=== PATIENT | female | born 1960 | race Caucasian/White ===

== ENCOUNTER 2017-09-12 16:54 | Emergency (ER) | payer BC, OTHER ==
[2017-09-12] MEDS ORDERED: IPRATROPIUM-ALBUTEROL 3 ML NEB INHALATION STA ×2 (17:18→19:02)
[2017-09-12] MEDS ORDERED: SODIUM CHLORIDE 0.9% 1,000 ML IV STA (17:18)
--- NOTE | 2017-09-12 17:43 | ED ---
SOB HPI - General Chief Complaint: Shortness of Breath Stated Complaint: SOB Time Seen by Provider: 09/12/17 17:07 Source: patient, family, RN notes reviewed Mode of arrival: ambulatory Limitations: no limitations - History of Present Illness Initial Comments: 57-year-old female who states she's had intermittent episodes of shortness of breath which started with what she thought was a upper respiratory infection about 4-5 weeks ago she states she's been progressively worse not feeling better finally couldn't take it anymore and came in for evaluation due to sinus congestion and fullness in her mid and left-sided headaches to the sinus region she states. No overt chest pain no phlegm production. Breast sounds and exertional dyspnea. She does have a history pneumonia and bronchitis in the past. She is not a smoker. She has been using home remedies without success MD Complaint: shortness of breath - Related Data Home Medications Medication Instructions Recorded Confirmed ALPRAZolam [Xanax] 0.5 - 1 mg PO HS 09/12/17 09/12/17 Aspirin/Acetaminophen/Caffeine 2 tab PO Q6H PRN 09/12/17 09/12/17 [Excedrin Extra Strength Caplet] Diazepam [Valium] 10 mg PO BID 09/12/17 09/12/17 FLUoxetine HCL [PROzac] 20 mg PO BID 09/12/17 09/12/17 Fluticasone Propionate [Flonase 1 spray EA NOSTRIL DAILY PRN 09/12/17 09/12/17 Allergy Relief] Mirtazapine [Remeron] 15 mg PO HS 09/12/17 09/12/17 Previous Rx's Medication Instructions Recorded Albuterol Inhaler [Ventolin Hfa 2 puff INHALATION Q6HR PRN #1 09/12/17 Inhaler] inhaler predniSONE 20 mg PO BID #10 tab 09/12/17 Allergies Allergy/AdvReac Type Severity Reaction Status Date / Time No Known Allergies Allergy Verified 09/12/17 17:56 Review of Systems ROS Statement: Those systems with pertinent positive or pertinent negative responses have been documented in the HPI. ROS Other: All systems not noted in ROS Statement are negative. Past Medical History Past Medical History: No Reported History History of Any Multi-Drug Resistant Organisms: None Reported Past Surgical History: Hysterectomy Past Psychological History: No Psychological Hx Reported Smoking Status: Never smoker Past Alcohol Use History: None Reported Past Drug Use History: None Reported General Exam - General Exam Comments Initial Comments: This is a well-developed well-nourished awake alert oriented 1 female Limitations: no limitations General appearance: alert, in no apparent distress Head exam: Present: atraumatic, normocephalic, normal inspection Eye exam: Present: normal appearance, PERRL, EOMI. Absent: scleral icterus, conjunctival injection, periorbital swelling ENT exam: Present: normal exam, mucous membranes moist Neck exam: Present: normal inspection. Absent: tenderness, meningismus, lymphadenopathy Respiratory exam: Present: decreased breath sounds. Absent: respiratory distress, wheezes, rales, rhonchi, stridor Cardiovascular Exam: Present: normal rhythm, tachycardia, normal heart sounds. Absent: systolic murmur, diastolic murmur, rubs, gallop, clicks GI/Abdominal exam: Present: soft, normal bowel sounds. Absent: distended, tenderness, guarding, rebound, rigid Extremities exam: Present: normal inspection, full ROM, normal capillary refill. Absent: tenderness, pedal edema, joint swelling, calf tenderness Back exam: Present: normal inspection Neurological exam: Present: alert, oriented X3, CN II-XII intact Psychiatric exam: Present: normal affect, normal mood Skin exam: Present: warm, dry, intact, normal color. Absent: rash Course Vital Signs 09/12/17 09/12/17 09/12/17 16:59 17:35 18:05 Temperature 97.1 F L Pulse Rate 112 H 78 Respiratory 22 18 Rate Blood Pressure 132/68 O2 Sat by Pulse 98 Oximetry 09/12/17 09/12/17 09/12/17 18:18 18:30 19:12 Temperature Pulse Rate 80 109 H 83 Respiratory 18 18 Rate Blood Pressure 112/57 109/58 O2 Sat by Pulse 94 L 96 Oximetry 09/12/17 09/12/17 09/12/17 19:22 19:36 20:22 Temperature 98 F Pulse Rate 74 72 97 Respiratory 18 Rate Blood Pressure 100/58 O2 Sat by Pulse 96 Oximetry - Reevaluation(s) Reevaluation #1: 09/12/17 19:03 I did reevaluate the patient she states she did get some relief for about 15 minutes after the updraft treatment. She is still short of breath reevaluation reveals diminished breath sounds symmetric her first evaluation. 09/12/17 19:03 She will be given a steroid injection as well as IV magnesium and a repeat DuoNeb. Medical Decision Making - Medical Decision Making On reevaluation the patient she is breathing better with good air movement now. The current presentation consistent with a bronchospasm. She'll be discharged on appropriate medication with referral to pulmonary medicine. She has request Dr. Nogueira - Lab Data Result diagrams: 09/12/17 17:31 09/12/17 17:31 Lab Results 09/12/17 09/12/17 09/12/17 Range/Units 17:31 17:31 17:31 WBC 7.0 (3.8-10.6) k/uL RBC 4.24 (3.80-5.40) m/uL Hgb 13.4 (11.4-16.0) gm/dL Hct 40.2 (34.0-46.0) % MCV 94.8 (80.0-100.0) fL MCH 31.5 (25.0-35.0) pg MCHC 33.2 (31.0-37.0) g/dL RDW 14.4 (11.5-15.5) % Plt Count 245 (150-450) k/uL Neutrophils % 52 % Lymphocytes % 36 % Monocytes % 5 % Eosinophils % 4 % Basophils % 1 % Neutrophils # 3.7 (1.3-7.7) k/uL Lymphocytes # 2.5 (1.0-4.8) k/uL Monocytes # 0.4 (0-1.0) k/uL Eosinophils # 0.2 (0-0.7) k/uL Basophils # 0.1 (0-0.2) k/uL PT (9.0-12.0) sec INR (<1.2) APTT (22.0-30.0) sec D-Dimer (<0.60) mg/L FEU Sodium 143 (137-145) mmol/L Potassium 4.1 (3.5-5.1) mmol/L Chloride 109 H (98-107) mmol/L Carbon Dioxide 22 (22-30) mmol/L Anion Gap 12 mmol/L BUN 10 (7-17) mg/dL Creatinine 0.80 (0.52-1.04) mg/dL Est GFR (MDRD) Af Amer >60 (>60 ml/min/1.73 sqM) Est GFR (MDRD) Non-Af >60 (>60 ml/min/1.73 sqM) Glucose 131 H (74-99) mg/dL Calcium 9.9 (8.4-10.2) mg/dL Magnesium 1.8 (1.6-2.3) mg/dL Total Bilirubin 0.3 (0.2-1.3) mg/dL AST 60 H (14-36) U/L ALT 107 H (9-52) U/L Alkaline Phosphatase 115 (38-126) U/L Total Creatine Kinase 46 (30-135) U/L CK-MB (CK-2) 0.3 (0.0-2.4) ng/mL CK-MB (CK-2) Rel Index 0.7 Troponin I <0.012 (0.000-0.034) ng/mL NT-Pro-B Natriuret Pep pg/mL Total Protein 7.1 (6.3-8.2) g/dL Albumin 4.1 (3.5-5.0) g/dL 09/12/17 09/12/17 Range/Units 17:31 17:31 WBC (3.8-10.6) k/uL RBC (3.80-5.40) m/uL Hgb (11.4-16.0) gm/dL Hct (34.0-46.0) % MCV (80.0-100.0) fL MCH (25.0-35.0) pg MCHC (31.0-37.0) g/dL RDW (11.5-15.5) % Plt Count (150-450) k/uL Neutrophils % % Lymphocytes % % Monocytes % % Eosinophils % % Basophils % % Neutrophils # (1.3-7.7) k/uL Lymphocytes # (1.0-4.8) k/uL Monocytes # (0-1.0) k/uL Eosinophils # (0-0.7) k/uL Basophils # (0-0.2) k/uL PT 9.5 (9.0-12.0) sec INR 1.0 (<1.2) APTT 22.6 (22.0-30.0) sec D-Dimer 0.55 (<0.60) mg/L FEU Sodium (137-145) mmol/L Potassium (3.5-5.1) mmol/L Chloride (98-107) mmol/L Carbon Dioxide (22-30) mmol/L Anion Gap mmol/L BUN (7-17) mg/dL Creatinine (0.52-1.04) mg/dL Est GFR (MDRD) Af Amer (>60 ml/min/1.73 sqM) Est GFR (MDRD) Non-Af (>60 ml/min/1.73 sqM) Glucose (74-99) mg/dL Calcium (8.4-10.2) mg/dL Magnesium (1.6-2.3) mg/dL Total Bilirubin (0.2-1.3) mg/dL AST (14-36) U/L ALT (9-52) U/L Alkaline Phosphatase (38-126) U/L Total Creatine Kinase (30-135) U/L CK-MB (CK-2) (0.0-2.4) ng/mL CK-MB (CK-2) Rel Index Troponin I (0.000-0.034) ng/mL NT-Pro-B Natriuret Pep 120 pg/mL Total Protein (6.3-8.2) g/dL Albumin (3.5-5.0) g/dL - EKG Data -: EKG Interpreted by Me (UG shows sinus rhythm of 82. Interval 1:30 QRS duration 70 QT since QTC of) Disposition Clinical Impression: Acute bronchospasm Disposition: HOME SELF-CARE Condition: Good Instructions: Bronchospasm (ED) Prescriptions: Albuterol Inhaler [Ventolin Hfa Inhaler] 2 puff INHALATION Q6HR PRN #1 inhaler PRN Reason: Dyspnea predniSONE 20 mg PO BID #10 tab Referrals: Omar Leon DO [Primary Care Provider] - 1-2 days
[2017-09-12 17:49] LABS: Basophils # (A) 0.1 k/uL (0-0.2); Basophils % (A) 1 %; Eosinophils # (A) 0.2 k/uL (0-0.7); Eosinophils % (A) 4 %; HCT 40.2 % (34.0-46.0); HGB 13.4 gm/dL (11.4-16.0); Lymphocytes # (A) 2.5 k/uL (1.0-4.8); Lymphocytes % (A) 36 %; MCH 31.5 pg (25.0-35.0); MCHC 33.2 g/dL (31.0-37.0); MCV 94.8 fL (80.0-100.0); Mean Platelet Volume 8.5; Monocytes # (A) 0.4 k/uL (0-1.0); Monocytes % (A) 5 %; Neutrophils # (A) 3.7 k/uL (1.3-7.7); Neutrophils % (A) 52 %; Platelet Count 245 k/uL (150-450); RBC 4.24 m/uL (3.80-5.40); RDW 14.4 % (11.5-15.5)
--- NOTE | 2017-09-12 17:51 | XR ---
EXAMINATION TYPE: XR chest 2V DATE OF EXAM: 09/12/2017 COMPARISON: Chest x-ray November 25, 2014 HISTORY: Shortness of breath for 4 weeks. TECHNIQUE: Frontal and lateral views of the chest are obtained. FINDINGS: There is chronic parenchymal change without suspicious focal air space opacity, pleural ef fusion, or pneumothorax seen on current study. The cardiac silhouette size is upper limits of normal . The osseous structures are intact. IMPRESSION: No suspicious acute pulmonary process on current study.
[2017-09-12 18:01] VITALS: RESP 18
[2017-09-12 18:05] LABS: ALT 107 U/L (9-52); AST 60 U/L (14-36); Albumin 4.1 g/dL (3.5-5.0); Alkaline Phosphatase 115 U/L (38-126); Anion Gap 12 mmol/L; Blood Urea Nitrogen 10 mg/dL (7-17); Calcium 9.9 mg/dL (8.4-10.2); Carbon Dioxide 22 mmol/L (22-30); Chloride 109 mmol/L (98-107); Glucose 131 mg/dL (74-99); Magnesium 1.8 mg/dL (1.6-2.3); Potassium 4.1 mmol/L (3.5-5.1); Sodium 143 mmol/L (137-145); Total Bilirubin 0.3 mg/dL (0.2-1.3); Total Protein 7.1 g/dL (6.3-8.2)
[2017-09-12 18:06] LABS: Creatine Kinase 46 U/L (30-135)
[2017-09-12 18:07] LABS: D-Dimer 0.55 mg/L FEU (<0.60); Partial Thromboplastin Time 22.6 sec (22.0-30.0); Prothrombin Time 9.5 sec (9.0-12.0)
[2017-09-12 18:20] LABS: Creatine Kinase MB 0.3 ng/mL (0.0-2.4); Troponin I <0.012 ng/mL (0.000-0.034)
[2017-09-12] MEDS ORDERED: MAGNESIUM SULFATE-D5W PMX 1 GM in DEXTROSE/WATER 1 100ML.BAG IVPB ONE (19:02)
[2017-09-12] MEDS ORDERED: methylPREDNISolone SOD SUCCI 125 MG/2 ML VIAL IV STA (19:02)
[2017-09-12 20:22] VITALS: BP 100/58; PULSE 97; TEMP 98
== END 2017-09-12 20:56 | disposition home or self-care (01) ==
LOC: EC 16:54
DX: J98.01 Acute bronchospasm (principal); Z79.899 Other long term (current) drug therapy
CPT/HCPCS: 99285; 96365; 96375; 96361; 36415; 94640 ×2; 93005; 85379; 83880; 80053; 82550; 82553; 83735; 84484; 85025; 85610; 85730; 87040; 71046; J2930; J3475

== ENCOUNTER 2021-07-17 16:14 | Observation (INO) | payer BC ==
[2021-07-17] MEDS ORDERED: PIPERACILLIN-TAZOBACTAM 3.375 GM in SODIUM CHLORIDE 0.9% 100 ML IVPB STA (18:40)
[2021-07-17] MEDS ORDERED: NALOXONE 0.4 MG/ML 1 ML VIAL IV PRN (18:41)
[2021-07-17 18:48] LABS: Basophils # (A) 0.1 k/uL (0-0.2); Basophils % (A) 1 %; Eosinophils # (A) 0.1 k/uL (0-0.7); Eosinophils % (A) 2 %; HCT 41.1 % (34.0-46.0); Lymphocytes # (A) 3.3 k/uL (1.0-4.8); Lymphocytes % (A) 38 %; MCH 33.1 pg (25.0-35.0); MCV 97.3 fL (80.0-100.0); Mean Platelet Volume 8.6; Monocytes # (A) 0.5 k/uL (0-1.0); Monocytes % (A) 6 %; Neutrophils # (A) 4.5 k/uL (1.3-7.7); Neutrophils % (A) 52 %; Platelet Count 223 k/uL (150-450); RBC 4.23 m/uL (3.80-5.40); RDW 12.9 % (11.5-15.5); WBC 8.6 k/uL (3.8-10.6)
--- NOTE | 2021-07-17 18:49 | ED ---
General Adult HPI - General Chief complaint: Abdominal Pain Stated complaint: appendicitis, called and told her to come to ER. Time Seen by Provider: 07/17/21 18:24 Source: patient Mode of arrival: ambulatory Limitations: no limitations - History of Present Illness Initial comments: Dictation was produced using [employer] dictation software. please excuse any grammatical, word or spelling errors. Chief Complaint: 61-year-old female presents with abnormal outpatient CT History of Present Illness: To 1-year-old female she was sent in for abnormal CT. Patient has been having right lower quadrant abdominal pain for the last 2 days. She had a CT ordered by her primary care doctor. Showed acute appendicitis. Patient has any fever. She has right-sided pain. The reading. She has past surgical history of hysterectomy. Patient denies any significant comorbidities. She does have a history of anxiety. The ROS documented in this emergency department record has been reviewed and confirmed by me. Those systems with pertinent positive or negative responses have been documented in the HPI. All other systems are other negative and/or noncontributory. PHYSICAL EXAM: General Impression: Alert and oriented x3, not in acute distress HEENT: Normocephalic atraumatic, extra-ocular movements intact, pupils equal and reactive to light bilaterally, mucous membranes moist. Cardiovascular: Heart regular rate and rhythm Chest: Able to complete full sentences, no retractions, no tachypnea Abdomen: abdomen soft, tenderness in McBurney's with rebound tenderness, non- distended, no organomegaly Musculoskeletal: Pulses present and equal in all extremities, no peripheral edema Motor: no focal deficits noted Neurological: CN II-XII grossly intact, no focal motor or sensory deficits noted Skin: Intact with no visualized rashes Psych: Normal affect and mood ED course: 61-year-old feel presents to the emergency department for acute appendicitis. Signs upon arrival are within acceptable limits. Case was discussed with on-call surgeon, Dr. Aguirre is willing to accept patients care. Plan is to perform macroscopic appendectomy tomorrow. Medicine is consulted for medical management. Patient started on Zosyn. Laboratory evaluation obtained. CBC, coag panel, metabolic panel is unremarkable. Preop EKG and chest x-ray ordered. - Related Data Home Medications Medication Instructions Recorded Confirmed ALPRAZolam [Xanax] 0.5 - 1 mg PO HS 09/12/17 09/12/17 Aspirin/Acetaminophen/Caffeine 2 tab PO Q6H PRN 09/12/17 09/12/17 [Excedrin Extra Strength Caplet] Diazepam [Valium] 10 mg PO BID 09/12/17 09/12/17 FLUoxetine HCL [PROzac] 20 mg PO BID 09/12/17 09/12/17 Fluticasone Propionate [Flonase 1 spray EA NOSTRIL DAILY PRN 09/12/17 09/12/17 Allergy Relief] Mirtazapine [Remeron] 15 mg PO HS 09/12/17 09/12/17 Previous Rx's Medication Instructions Recorded Albuterol Inhaler (Mhu) [Ventolin 2 puff INHALATION Q6HR PRN #1 09/12/17 Hfa Inhaler (Mhu)] inhaler predniSONE [Deltasone] 20 mg PO BID #10 tab 09/12/17 Allergies Allergy/AdvReac Type Severity Reaction Status Date / Time No Known Allergies Allergy Verified 07/17/21 17:15 Review of Systems ROS Statement: Those systems with pertinent positive or pertinent negative responses have been documented in the HPI. ROS Other: All systems not noted in ROS Statement are negative. Past Medical History Past Medical History: No Reported History History of Any Multi-Drug Resistant Organisms: None Reported Past Surgical History: Hysterectomy Past Psychological History: No Psychological Hx Reported Smoking Status: Never smoker Past Alcohol Use History: None Reported Past Drug Use History: None Reported General Exam Limitations: no limitations Course Vital Signs 07/17/21 07/17/21 17:15 18:43 Temperature 98.0 F Pulse Rate 97 92 Respiratory 20 18 Rate Blood Pressure 102/54 131/80 O2 Sat by Pulse 95 95 Oximetry Medical Decision Making - Lab Data Result diagrams: 07/17/21 18:36 07/17/21 18:36 Lab Results 07/17/21 07/17/21 07/17/21 Range/Units 18:36 18:36 18:36 WBC 8.6 (3.8-10.6) k/uL RBC 4.23 (3.80-5.40) m/uL Hgb 14.0 (11.4-16.0) gm/dL Hct 41.1 (34.0-46.0) % MCV 97.3 (80.0-100.0) fL MCH 33.1 (25.0-35.0) pg MCHC 34.0 (31.0-37.0) g/dL RDW 12.9 (11.5-15.5) % Plt Count 223 (150-450) k/uL MPV 8.6 Neutrophils % 52 % Lymphocytes % 38 % Monocytes % 6 % Eosinophils % 2 % Basophils % 1 % Neutrophils # 4.5 (1.3-7.7) k/uL Lymphocytes # 3.3 (1.0-4.8) k/uL Monocytes # 0.5 (0-1.0) k/uL Eosinophils # 0.1 (0-0.7) k/uL Basophils # 0.1 (0-0.2) k/uL PT 9.8 (9.0-12.0) sec INR 0.9 (<1.2) APTT 23.3 (22.0-30.0) sec Sodium 136 L (137-145) mmol/L Potassium 3.9 (3.5-5.1) mmol/L Chloride 102 (98-107) mmol/L Carbon Dioxide 23 (22-30) mmol/L Anion Gap 11 mmol/L BUN 8 (7-17) mg/dL Creatinine 0.79 (0.52-1.04) mg/dL Est GFR (CKD-EPI)AfAm >90 (>60 ml/min/1.73 sqM) Est GFR (CKD-EPI)NonAf 81 (>60 ml/min/1.73 sqM) Glucose 109 H (74-99) mg/dL Plasma Lactic Acid Trevor (0.7-2.0) mmol/L Calcium 9.4 (8.4-10.2) mg/dL 07/17/21 Range/Units 18:36 WBC (3.8-10.6) k/uL RBC (3.80-5.40) m/uL Hgb (11.4-16.0) gm/dL Hct (34.0-46.0) % MCV (80.0-100.0) fL MCH (25.0-35.0) pg MCHC (31.0-37.0) g/dL RDW (11.5-15.5) % Plt Count (150-450) k/uL MPV Neutrophils % % Lymphocytes % % Monocytes % % Eosinophils % % Basophils % % Neutrophils # (1.3-7.7) k/uL Lymphocytes # (1.0-4.8) k/uL Monocytes # (0-1.0) k/uL Eosinophils # (0-0.7) k/uL Basophils # (0-0.2) k/uL PT (9.0-12.0) sec INR (<1.2) APTT (22.0-30.0) sec Sodium (137-145) mmol/L Potassium (3.5-5.1) mmol/L Chloride (98-107) mmol/L Carbon Dioxide (22-30) mmol/L Anion Gap mmol/L BUN (7-17) mg/dL Creatinine (0.52-1.04) mg/dL Est GFR (CKD-EPI)AfAm (>60 ml/min/1.73 sqM) Est GFR (CKD-EPI)NonAf (>60 ml/min/1.73 sqM) Glucose (74-99) mg/dL Plasma Lactic Acid Trevor 1.9 (0.7-2.0) mmol/L Calcium (8.4-10.2) mg/dL Disposition Clinical Impression: Acute appendicitis Disposition: ADMITTED IP TO THIS HOSP Condition: Fair Referrals: Garo Mantilla DO [Primary Care Provider] - 1-2 days
[2021-07-17 18:55] LABS: African American GFR (CKD) >90 (>60 ml/min/1.73 sqM); Anion Gap 11 mmol/L; Blood Urea Nitrogen 8 mg/dL (7-17); Calcium 9.4 mg/dL (8.4-10.2); Carbon Dioxide 23 mmol/L (22-30); Chloride 102 mmol/L (98-107); Glucose 109 mg/dL (74-99); Non-African American GFR(CKD) 81 (>60 ml/min/1.73 sqM); Potassium 3.9 mmol/L (3.5-5.1); Sodium 136 mmol/L (137-145)
[2021-07-17 19:06] LABS: INR 0.9 (<1.2); Partial Thromboplastin Time 23.3 sec (22.0-30.0); Prothrombin Time 9.8 sec (9.0-12.0)
[2021-07-17] MEDS: SODIUM CHLORIDE 0.9% 1,000 ML IV SCH (19:49)
--- NOTE | 2021-07-17 19:55 | XR ---
EXAMINATION: XR chest 1V portable DATE AND TIME: 07/17/2021 6:53 PM CLINICAL INDICATION: PHH; pre operative TECHNIQUE: Departmental protocol COMPARISON: 09/22/2017 FINDINGS: The lungs are clear. The pleural spaces are negative. The cardiac silhouette is not enlarged. The remainder of the mediastinal silhouette is unremarkable. The skeletal structures and soft tissues are negative for acute findings. IMPRESSION: NO ACUTE PROCESS.
[2021-07-18] MEDS: ALPRAZolam 0.5 MG TAB PO PRN ×2 (02:11→20:25)
[2021-07-18] MEDS: AMITRIPTYLINE HCL 25 MG TAB PO SCH ×2 (04:38→20:18)
[2021-07-18] MEDS ORDERED: ACETAMINOPHEN IV (For NPO) 1,000 MG in EMPTY BAG 1 BAG IVPB PRN (08:53)
[2021-07-18] MEDS: PIPERACILLIN-TAZOBACTAM 3.375 GM in SODIUM CHLORIDE 0.9% 100 ML IVPB SCH ×2 (09:27→16:19)
[2021-07-18] MEDS: SODIUM CHLORIDE 0.9% 1,000 ML IV SCH (09:27)
--- NOTE | 2021-07-18 09:29 | P.GSHP ---
<Willa Vincent - Last Filed: 07/18/21 09:20> History of Present Illness H&P Date: 07/18/21 CHIEF COMPLAINT: Abdominal pain HISTORY OF PRESENT ILLNESS: This is a 61-year-old female who presented to the hospital with complaints of right lower quadrant abdominal pain 5 days and outpatient computed tomography scan with evidence of acute appendicitis. Patient complains of nausea. She denies any vomiting, fever chills or sweats. She admits to having some loose bowel movements. She initially thought that her symptoms were related to her IBS. However, she continued to have pain and no improvement. She then went to her PCP who ordered a CAT scan. Past surgical history includes hysterectomy, and tubal ligation. She is afebrile. PAST MEDICAL HISTORY: See list. PAST SURGICAL HISTORY: See list. MEDICATIONS: See list. ALLERGIES: See list. SOCIAL HISTORY: No illicit drug use. REVIEW OF SYSTEMS: CONSTITUTIONAL: Denies fever or chills. HEENT: Denies blurred vision, vision changes, or eye pain. Denies hemoptysis CARDIOVASCULAR: Denies chest pain or pressure. RESPIRATORY: No shortness of breath. GASTROINTESTINAL: See HPI for pertinent findings HEMATOLOGIC: Denies bleeding disorders. GENITOURINARY: Denies any blood in urine or increased urinary frequency. SKIN: Denies pruitis. Denies rash. PHYSICAL EXAM: VITAL SIGNS: Reviewed GENERAL: Well-developed in no acute distress. HEENT: No sclera icterus. Extraocular movements grossly intact. Moist buccal mucosa. Head is atraumatic, normocephalic. No nasal drainage. ABDOMEN: Soft. Nondistended. Tenderness with palpation to right lower quadrant. NEUROLOGIC: Alert and oriented. Cranial nerves II through XII grossly intact. LABORATORY DATA: WBC 8.6 Hgb 14 PLT 223 INR 0.9 sodium 136 BUN 8 creatinine 0.79 K3.9 IMAGING: Computed tomography scan abdomen and pelvis demonstrating mild or early uncomplicated acute appendicitis Chest x-ray no acute process ASSESSMENT: 1. Acute appendicitis PLAN: -Patient scheduled for laparoscopic, possible open appendectomy today with Dr. 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 Signing provider agrees with the documented findings, assessment, and plan of care. Past Medical History Past Medical History: No Reported History Additional Past Medical History / Comment(s): pt states GERD History of Any Multi-Drug Resistant Organisms: None Reported Past Surgical History: Hysterectomy Past Psychological History: Anxiety Smoking Status: Never smoker Past Alcohol Use History: None Reported Past Drug Use History: None Reported Medications and Allergies Home Medications Medication Instructions Recorded Confirmed Type ALPRAZolam [Xanax] 1 - 1.5 mg PO HS PRN 09/12/17 07/17/21 History Aspirin/Acetaminophen/Caffeine 2 tab PO Q6H PRN 09/12/17 07/17/21 History [Excedrin Extra Strength Caplet] Diazepam [Valium] 10 mg PO DAILY PRN 09/12/17 07/17/21 History FLUoxetine HCL [PROzac] 40 mg PO BID 09/12/17 07/17/21 History Amitriptyline HCl [Elavil] 50 mg PO HS 07/17/21 07/17/21 History Multivitamins, Thera [Multivitamin 1 tab PO DAILY 07/17/21 07/17/21 History (formulary)] Quercetin Supplement 1 tab PO DAILY 07/17/21 07/17/21 History Allergies Allergy/AdvReac Type Severity Reaction Status Date / Time No Known Allergies Allergy Verified 07/18/21 10:53 Surgical - Exam Vital Signs Temp Pulse Resp BP Pulse Ox 98.0 F 97 20 102/54 95 07/17/21 17:15 07/17/21 17:15 07/17/21 17:15 07/17/21 17:15 07/17/21 17:15 Results - Labs 07/17/21 18:36 07/17/21 18:36 Abnormal Lab Results - Last 24 Hours (Table) 07/17/21 Range/Units 18:36 Sodium 136 L (137-145) mmol/L Glucose 109 H (74-99) mg/dL Diabetes panel 07/17/21 Range/Units 18:36 Sodium 136 L (137-145) mmol/L Potassium 3.9 (3.5-5.1) mmol/L Chloride 102 (98-107) mmol/L Carbon Dioxide 23 (22-30) mmol/L BUN 8 (7-17) mg/dL Creatinine 0.79 (0.52-1.04) mg/dL Glucose 109 H (74-99) mg/dL Calcium 9.4 (8.4-10.2) mg/dL Calcium panel 07/17/21 Range/Units 18:36 Calcium 9.4 (8.4-10.2) mg/dL Pituitary panel 07/17/21 Range/Units 18:36 Sodium 136 L (137-145) mmol/L Potassium 3.9 (3.5-5.1) mmol/L Chloride 102 (98-107) mmol/L Carbon Dioxide 23 (22-30) mmol/L BUN 8 (7-17) mg/dL Creatinine 0.79 (0.52-1.04) mg/dL Glucose 109 H (74-99) mg/dL Calcium 9.4 (8.4-10.2) mg/dL Adrenal panel 07/17/21 Range/Units 18:36 Sodium 136 L (137-145) mmol/L Potassium 3.9 (3.5-5.1) mmol/L Chloride 102 (98-107) mmol/L Carbon Dioxide 23 (22-30) mmol/L BUN 8 (7-17) mg/dL Creatinine 0.79 (0.52-1.04) mg/dL Glucose 109 H (74-99) mg/dL Calcium 9.4 (8.4-10.2) mg/dL <Laci Aguirre - Last Filed: 07/18/21 12:13> History of Present Illness As above. Patient's history is somewhat atypical for appendicitis however location of pain and physical exam findings are consistent. CAT scan reviewed. CAT scan shows what appears represent mild appendicitis. Options reviewed. We'll proceed with laparoscopic, possible open appendectomy today. Risks of bleeding, infection, scarring, hernia, abscess, conversion to open procedure, bladder bowel and ureteral injury, and anesthesia-related Occasions reviewed. Patient understands and wishes to proceed. Continue IV antibiotics. Possible discharge later today if doing well. Surgical - Exam Vital Signs Temp Pulse Resp BP Pulse Ox 98.0 F 97 20 102/54 95 07/17/21 17:15 07/17/21 17:15 07/17/21 17:15 07/17/21 17:15 07/17/21 17:15 Results - Labs 07/17/21 18:36 07/17/21 18:36 Abnormal Lab Results - Last 24 Hours (Table) 07/17/21 Range/Units 18:36 Sodium 136 L (137-145) mmol/L Glucose 109 H (74-99) mg/dL Diabetes panel 07/17/21 Range/Units 18:36 Sodium 136 L (137-145) mmol/L Potassium 3.9 (3.5-5.1) mmol/L Chloride 102 (98-107) mmol/L Carbon Dioxide 23 (22-30) mmol/L BUN 8 (7-17) mg/dL Creatinine 0.79 (0.52-1.04) mg/dL Glucose 109 H (74-99) mg/dL Calcium 9.4 (8.4-10.2) mg/dL Calcium panel 07/17/21 Range/Units 18:36 Calcium 9.4 (8.4-10.2) mg/dL Pituitary panel 07/17/21 Range/Units 18:36 Sodium 136 L (137-145) mmol/L Potassium 3.9 (3.5-5.1) mmol/L Chloride 102 (98-107) mmol/L Carbon Dioxide 23 (22-30) mmol/L BUN 8 (7-17) mg/dL Creatinine 0.79 (0.52-1.04) mg/dL Glucose 109 H (74-99) mg/dL Calcium 9.4 (8.4-10.2) mg/dL Adrenal panel 07/17/21 Range/Units 18:36 Sodium 136 L (137-145) mmol/L Potassium 3.9 (3.5-5.1) mmol/L Chloride 102 (98-107) mmol/L Carbon Dioxide 23 (22-30) mmol/L BUN 8 (7-17) mg/dL Creatinine 0.79 (0.52-1.04) mg/dL Glucose 109 H (74-99) mg/dL Calcium 9.4 (8.4-10.2) mg/dL
[2021-07-18] MEDS ORDERED: IV FLUID CONTINUATION 1,000 ML IV ONE ×2 (10:39→10:40)
[2021-07-18] MEDS ORDERED: HEPARIN SODIUM,PORCINE/PF 5,000 UNIT/0.5 ML SYRINGE SQ ONE (10:51)
[2021-07-18] MEDS ORDERED: ONDANSETRON 4 MG/2 ML VIAL ONE (10:51)
[2021-07-18] MEDS ORDERED: DEXAMETHASONE SOD PHOSPHATE 4 MG/ML 1 ML VIAL IVP ONE (11:01)
[2021-07-18] MEDS ORDERED: SCOPOLAMINE 1.5MG/72HR PATCH TRANSDERM ONE (11:02)
[2021-07-18] MEDS ORDERED: SUCCINYLCHOLINE CHLORIDE 100 MG/5 ML SYR IV ONE (12:33)
[2021-07-18] MEDS ORDERED: MIDAZOLAM 2 MG/2 ML VIAL ONE (12:33)
[2021-07-18] MEDS ORDERED: fentaNYL (PF) 50 MCG/ML 2 ML AMP ONE (12:33)
[2021-07-18] MEDS ORDERED: GLYCOPYRROLATE 0.2 MG/ML 2 ML VIAL ONE (12:33)
[2021-07-18] MEDS ORDERED: ROCURONIUM 10 MG/ML (5 ML VIAL) IV ONE (12:33)
[2021-07-18] MEDS ORDERED: NEOSTIGMINE 1 MG/ML 10 ML VIAL ONE (12:33)
[2021-07-18] MEDS ORDERED: LIDOCAINE 1% INJ 10MG/ML (20 ML MDV) ONE (12:33)
[2021-07-18] MEDS ORDERED: PROPOFOL 10 MG/ML 20 ML VIAL IV ONE (12:33)
[2021-07-18] MEDS ORDERED: BUPIVACAIN-EPI 0.25%-1:200,000 30 ML VIAL SQ ONE ×2 (12:55)
[2021-07-18] MEDS ORDERED: LACTATED RINGERS 1,000 ML IV ONE (13:03)
[2021-07-18] MEDS ORDERED: HYDROcodone/APAP 5-325MG 1 EACH TAB PO PRN (13:29)
[2021-07-18] MEDS ORDERED: ACETAMINOPHEN TAB 325 MG TAB PO PRN (13:29)
[2021-07-18] MEDS ORDERED: ONDANSETRON 4 MG/2 ML VIAL IVP PRN (13:29)
[2021-07-18] MEDS ORDERED: HYDROmorphone 0.5 MG/0.5 ML SYRINGE IVP PRN (13:29)
--- NOTE | 2021-07-18 13:31 | P.OP ---
Date of Procedure: 07/18/21 Procedure(s) Performed: PREOPERATIVE DIAGNOSIS: Acute appendicitis POSTOPERATIVE DIAGNOSIS: Same PROCEDURE: Laparoscopic appendectomy SURGEON: Carla EBL: 20 mL ANESTHESIA: General COMPLICATIONS: None OPERATIVE PROCEDURE: The patient was brought and placed on the operating table in the supine position. The patient was placed under general anesthesia. The abdomen was prepped and draped in the usual sterile fashion. A small vertical infraumbilical incision was made. The fascia was retracted anteriorly with Key forceps. The Veress needle was advanced into the peritoneal cavity. The saline drop test was normal. Insufflation took place to 15 mmHg. A 5 mm trocar was then placed. An additional 5 mm suprapubic trocar was placed under direct visualization as well as a 12 mm left lower quadrant trocar under direct visualization. The appendix was inspected. It was acutely inflamed. The mesoappendix was dissected. The base of the appendix was divided using a linear 45 mm intestinal stapler. The mesentery itself was divided using LigaSure. There is a small area of bleeding controlled using the clip clinical resource director. The area was then irrigated. No further purulence or bleeding was seen. The appendix was brought out of the peritoneal cavity through the left lower quadrant trocar site with an Endo Catch bag. The fascia at the 12 mm site was closed using a Preet-Nazia 0 Vicryl stitch. The skin at all 3 sites was closed using 4-0 Monocryl sutures. Skin glue was then applied. DISPOSITION: Stable to recovery room
[2021-07-18] MEDS ORDERED: HYDROmorphone 0.5 MG/0.5 ML SYRINGE IVP ONE (13:58)
[2021-07-18] MEDS: HEPARIN SODIUM,PORCINE/PF 5,000 UNIT/0.5 ML SYRINGE SQ SCH (16:19)
[2021-07-19] MEDS: SODIUM CHLORIDE 0.9% 1,000 ML IV SCH ×2 (00:59→12:49)
[2021-07-19] MEDS: PIPERACILLIN-TAZOBACTAM 3.375 GM in SODIUM CHLORIDE 0.9% 100 ML IVPB SCH ×2 (01:00→08:05)
[2021-07-19] MEDS: HEPARIN SODIUM,PORCINE/PF 5,000 UNIT/0.5 ML SYRINGE SQ SCH ×2 (01:00→08:05)
[2021-07-19 08:47] VITALS: BP 101/65; PULSE 87; RESP 18; TEMP 98.3
[2021-07-19] MEDS ORDERED: PANTOPRAZOLE 40 MG/10 ML VIAL IV SCH (09:00)
--- NOTE | 2021-07-19 11:24 | P.DS ---
Providers Date of admission: 07/17/21 18:41 Expected date of discharge: 07/19/21 Attending physician: Laci Aguirre Consults: 07/17/21 18:42 Consult Physician Routine Consulting Provider: Dennis Luna Consult Reason/Comments: medicine consult Do you want consulting provider notified?: Yes Primary care physician: [facility] Course: Patient admitted 2 nights ago with acute appendicitis. Underwent laparoscopic appendectomy yesterday morning. Doing well today. Tolerating diet. No fevers. Incisions are clean and dry, we'll discharge. No antibiotic needed. No pain medicines for discharge only [id number] meds. Follow-up one week. Patient Condition at Discharge: Fair Plan - Discharge Summary Discharge Rx Participant: Yes New Discharge Prescriptions: New HYDROcodone/APAP 5-325MG [[place] 5-325] 1 tab PO Q6HR PRN 3 Days #6 tab PRN Reason: Analgesia No Action FLUoxetine HCL [PROzac] 40 mg PO BID ALPRAZolam [Xanax] 1 - 1.5 mg PO HS PRN PRN Reason: ANXIETY/SLEEP Diazepam [Valium] 10 mg PO DAILY PRN PRN Reason: Anxiety Aspirin/Acetaminophen/Caffeine [Excedrin Extra Strength Caplet] 2 tab PO Q6H PRN PRN Reason: Pain Amitriptyline HCl [Elavil] 50 mg PO HS Quercetin Supplement 1 tab PO DAILY Multivitamins, Thera [Multivitamin (formulary)] 1 tab PO DAILY Discharge Medication List ALPRAZolam [Xanax] 1 - 1.5 mg PO HS PRN 09/12/17 [History] Aspirin/Acetaminophen/Caffeine [Excedrin Extra Strength Caplet] 2 tab PO Q6H PRN 09/12/17 [History] Diazepam [Valium] 10 mg PO DAILY PRN 09/12/17 [History] FLUoxetine HCL [PROzac] 40 mg PO BID 09/12/17 [History] Amitriptyline HCl [Elavil] 50 mg PO HS 07/17/21 [History] Multivitamins, Thera [Multivitamin (formulary)] 1 tab PO DAILY 07/17/21 [History] Quercetin Supplement 1 tab PO DAILY 07/17/21 [History] HYDROcodone/APAP 5-325MG [[place] 5-325] 1 tab PO Q6HR PRN 3 Days #6 tab 07/18/21 [Rx] Follow up Appointment(s)/Referral(s): Laci Aguirre MD [Medical Doctor] - 1 Week Garo Mantilla DO [Primary Care Provider] - 1-2 days Patient Instructions/Handouts: *Surgery [facility] - Scopalamine Patch Instructions
--- NOTE | 2021-07-20 18:00 | P.CONS ---
History of Present Illness - Reason for Consult Consult date: 07/18/21 Medical management - Chief Complaint Acute appendicitis - History of Present Illness 61-year-old female patient presented to ED with abnormal CT of abdomen; patient has been having right lower quadrant abdominal pain for the past 2-3 days and was evaluated by primary care physician and CT of the abdomen was done which revealed acute appendicitis; patient was advised to proceed to ED; patient re ports low-grade temperature and has been having chills along with severe, intractable right-sided lower quadrant abdominal pain In the ED patient was started on IV Zosyn Workup in ED including lab work, CBC, CMP and chest x-ray was unremarkable Review of Systems REVIEW OF SYSTEMS: CONSTITUTIONAL: No fever, no malaise, no fatigue. HEENT: No recent visual problems or hearing problems. Denied any sore throat. CARDIOVASCULAR: No chest pain, orthopnea, PND, no palpitations, no syncope. PULMONARY: No shortness of breath, no cough, no hemoptysis. GASTROINTESTINAL: No diarrhea, no nausea, no vomiting, no abdominal pain. NEUROLOGICAL: No headaches, no weakness, no numbness. HEMATOLOGICAL: Denies any bleeding or petechiae. GENITOURINARY: Denies any burning micturition, frequency, or urgency. MUSCULOSKELETAL/RHEUMATOLOGICAL: Denies any joint pain, swelling, or any muscle pain. ENDOCRINE: Denies any polyuria or polydipsia. The rest of the 14-point review of systems is negative. Past Medical History Past Medical History: No Reported History Additional Past Medical History / Comment(s): pt states GERD History of Any Multi-Drug Resistant Organisms: None Reported Past Surgical History: Hysterectomy Past Psychological History: Anxiety Smoking Status: Never smoker Past Alcohol Use History: None Reported Past Drug Use History: None Reported Medications and Allergies Home Medications Medication Instructions Recorded Confirmed Type ALPRAZolam [Xanax] 1 - 1.5 mg PO HS PRN 09/12/17 07/17/21 History Aspirin/Acetaminophen/Caffeine 2 tab PO Q6H PRN 09/12/17 07/17/21 History [Excedrin Extra Strength Caplet] Diazepam [Valium] 10 mg PO DAILY PRN 09/12/17 07/17/21 History FLUoxetine HCL [PROzac] 40 mg PO BID 09/12/17 07/17/21 History Amitriptyline HCl [Elavil] 50 mg PO HS 07/17/21 07/17/21 History Multivitamins, Thera [Multivitamin 1 tab PO DAILY 07/17/21 07/17/21 History (formulary)] Quercetin Supplement 1 tab PO DAILY 07/17/21 07/17/21 History HYDROcodone/APAP 5-325MG [[place] 1 tab PO Q6HR PRN 3 Days #6 tab 07/18/21 Rx 5-325] Allergies Allergy/AdvReac Type Severity Reaction Status Date / Time No Known Allergies Allergy Verified 07/18/21 10:53 Physical Exam Vitals: Vital Signs Temp Pulse Pulse Resp BP BP Pulse Ox 07/18/21 10:41 97.1 F L 89 18 115/61 93 L 07/18/21 08:00 88 17 07/18/21 07:00 97.9 F 88 17 92/42 97 07/18/21 02:01 98.0 F 89 16 105/67 92 L 07/18/21 02:00 97 16 07/17/21 22:22 97.7 F 97 16 131/73 95 07/17/21 19:55 88 16 115/60 95 07/17/21 18:43 92 18 131/80 95 07/17/21 17:15 98.0 F 97 20 102/54 95 Intake and Output 07/17/21 07/18/21 07/18/21 22:59 06:59 14:59 Other: Voiding Method Toilet Toilet # Voids 2 2 Weight 90.718 kg - Constitutional General appearance: Present: average body habitus, cooperative, no acute distress - EENT Eyes: Present: anicteric sclerae, EOMI, PERRLA, normal appearance ENT: Present: hearing grossly normal, normal oropharynx Ears: bilateral: normal - Neck Neck: Present: normal ROM. Absent: lymphadenopathy, rigidity, thyromegaly Carotids: negative: bruit present Thyroid: bilateral: normal size, negative: enlarged, nodule - Respiratory Respiratory: bilateral: CTA, negative: rales, rhonchi, wheezing - Cardiovascular Rhythm: regular Heart sounds: normal: S1, S2 Abnormal Heart Sounds: Absent: systolic murmur, diastolic murmur - Gastrointestinal General gastrointestinal: Present: normal bowel sounds, soft. Absent: distended, organomegaly, tenderness - Genitourinary Genitourinary Comment(s): deferred - Integumentary Integumentary: Present: normal turgor. Absent: jaundiced, rash, ulcer - Neurologic Neurologic: Present: CNII-XII intact. Absent: focal deficits - Musculoskeletal Musculoskeletal: Present: gait normal, strength equal bilaterally - Psychiatric Psychiatric: Present: A&O x's 3, appropriate affect, intact judgment & insight Results CBC & Chem 7: 07/17/21 18:36 07/17/21 18:36 Labs: Abnormal Lab Results - Last 24 Hours (Table) 07/17/21 Range/Units 18:36 Sodium 136 L (137-145) mmol/L Glucose 109 H (74-99) mg/dL Assessment and Plan Assessment: 1. Acute onset right lower quadrant abdominal pain - CT of the abdomen completed reveals acute appendicitis; patient is currently on IV antibiotics along with IV morphine for pain control - Surgery on board and patient is scheduled for laparoscopic appendectomy this afternoon 2. Anxiety; we will resume home dose of Xanax 1 mg by mouth daily at bedtime when necessary 3. Depression; Prozac 40 mg by mouth twice a day 4. Gastroesophageal reflux disease; PPI DVT prophylaxis; SCDs CODE STATUS; full code
--- NOTE | 2021-07-20 18:03 | P.PN ---
Subjective Progress Note Date: 07/19/21 Principal diagnosis: Acute appendicitis; status post laparoscopic appendectomy 61-year-old female patient presented to ED with abnormal CT of abdomen; patient has been having right lower quadrant abdominal pain for the past 2-3 days and was evaluated by primary care physician and CT of the abdomen was done which revealed acute appendicitis; patient was advised to proceed to ED; patient reports low-grade temperature and has been having chills along with severe, intractable right-sided lower quadrant abdominal pain In the ED patient was started on IV Zosyn Workup in ED including lab work, CBC, CMP and chest x-ray was unremarkable 07/19/2021 Patient is seen and evaluated in room at bedside; does report discomfort at surgical site; no fever or chills; labs are reviewed and stable; patient is stable from medical standpoint Objective - Vital Signs Vital signs: Vital Signs Temp 98.3 F 07/19/21 07:00 Pulse 87 07/19/21 07:00 Resp 18 07/19/21 07:00 BP 101/65 07/19/21 07:00 Pulse Ox 91 L 07/19/21 07:00 Intake & Output 07/18/21 07/19/21 07/19/21 18:59 06:59 18:59 Intake Total 800 Output Total 20 Balance 780 Intake: IV 800 Output: Estimated Blood Loss 20 Other: Voiding Method Toilet Toilet # Voids 3 2 - Exam - Constitutional General appearance: Present: average body habitus, cooperative, no acute distress - EENT Eyes: Present: anicteric sclerae, EOMI, PERRLA, normal appearance ENT: Present: hearing grossly normal, normal oropharynx Ears: bilateral: normal - Neck Neck: Present: normal ROM. Absent: lymphadenopathy, rigidity, thyromegaly Carotids: negative: bruit present Thyroid: bilateral: normal size, negative: enlarged, nodule - Respiratory Respiratory: bilateral: CTA, negative: rales, rhonchi, wheezing - Cardiovascular Rhythm: regular Heart sounds: normal: S1, S2 Abnormal Heart Sounds: Absent: systolic murmur, diastolic murmur - Gastrointestinal General gastrointestinal: Present: normal bowel sounds, soft. Absent: distended, organomegaly, tenderness - Genitourinary Genitourinary Comment(s): deferred - Integumentary Integumentary: Present: normal turgor. Absent: jaundiced, rash, ulcer - Neurologic Neurologic: Present: CNII-XII intact. Absent: focal deficits - Musculoskeletal Musculoskeletal: Present: gait normal, strength equal bilaterally - Psychiatric Psychiatric: Present: A&O x's 3, appropriate affect, intact judgment & insight - Labs CBC & Chem 7: 07/17/21 18:36 11 18:36 Assessment and Plan Assessment: 1. Acute onset right lower quadrant abdominal pain - CT of the abdomen completed reveals acute appendicitis; patient is currently on IV antibiotics along with IV morphine for pain control - Surgery on board and patient is scheduled for laparoscopic appendectomy this afternoon 2. Anxiety; we will resume home dose of Xanax 1 mg by mouth daily at bedtime when necessary 3. Depression; Prozac 40 mg by mouth twice a day 4. Gastroesophageal reflux disease; PPI DVT prophylaxis; SCDs CODE STATUS; full code
== END 2021-07-19 13:02 | disposition home or self-care (01) ==
LOC: EC 16:14 → 6NMEDSUR 18:41
PROVIDERS: ADMIT Surgery; ATTEND Surgery
DX: K35.80 Unspecified acute appendicitis (principal); K36 Other appendicitis; F32.9 Major depressive disorder, single episode, unspecified; K21.9 Gastro-esophageal reflux disease without esophagitis; F41.9 Anxiety disorder, unspecified; K58.9 Irritable bowel syndrome, unspecified; J32.9 Chronic sinusitis, unspecified; Z20.822 Contact with and (suspected) exposure to COVID-19; Z79.899 Other long term (current) drug therapy; Z90.710 Acquired absence of both cervix and uterus
CPT/HCPCS: 44970; 99285; 36415; 88304; 80048; 83605; 85025; 85610; 85730; 87635; 71045; G0378 ×3; J2543 ×3; J2250; J1100; J2710; J2405; J2001; J3010; J0330; J2704; C9113; J1170; J1644 ×2

== ENCOUNTER → 2021-07-17 | Outpatient (CLI) | payer BC ==
--- NOTE | 2021-07-17 15:54 | CT ---
EXAMINATION TYPE: CT abdomen pelvis w con DATE OF EXAM: 07/17/2021 HISTORY: RLQ pain x3 days CT DLP: 1730mGycm Automated Exposure Control for Dose Reduction was Utilized. CONTRAST: CT scan of the abdomen and pelvis is performed with IV Contrast, patient injected with 100 mL of Isov ue 300. COMPARISON: None. FINDINGS: LUNG BASES: Dependent atelectasis bilateral lung bases. LIVER/GB: Liver is markedly hypodense consistent with diffuse fatty infiltration. Innumerable gallsto justyna within the gallbladder without surrounding inflammatory change. PANCREAS: No significant abnormality is seen. SPLEEN: No significant abnormality is seen. ADRENALS: No significant abnormality is seen. KIDNEYS: No significant abnormality is seen. BOWEL: Oral contrast reaches level of the proximal transverse colon. No suspicious small or large bow el dilatation. Mild wall thickening in the distal transverse colon and left colon along with proximal to mid sigmoid colon in the pelvis in a contiguous fashion. Finding may reflect a mild uncomplicated acute colitis versus product of poor distention. Few diverticula in the sigmoid colon are redemonstr ated. No significant surrounding fat stranding. Terminal ileum appears within normal limits seen near axial images 64 through 67. Appendix is mildly dilated up to 8 mm with mild adjacent fat stranding. No adjacent free air. No well-formed fluid colle ction or abscess. UTERUS/ADNEXA: Uterus surgically absent. Occasional tiny phleboliths. LYMPH NODES: No greater than 1cm abdominal or pelvic lymph nodes are appreciated. OSSEOUS STRUCTURES: Moderate axial joint space loss in both hips. Multilevel facet arthropathy in the lower lumbar spine. OTHER: Mild to moderate calcified plaque of the aorta extends into branch vessels. IMPRESSION: CT findings suggest a mild or early uncomplicated acute appendicitis as detailed above. Attempts to contact the office are unsuccessful and perfect serve not available for ordering physicia n. A Bent level critical message alert has been initiated for Garo Mantilla DO via the [employer] Critical Results System on 07/17/2021 3:50 PM. This message alert has been sent to Garo grayson DO via the preferences provided by the clinician for the receipt of Radiology Critical Findings . Message ID [id number].
== END | disposition home or self-care (01) ==
LOC: RADCTMAIN 13:30
PROVIDERS: ATTEND Family Medicine
DX: K38.8 Other specified diseases of appendix (principal)
CPT/HCPCS: 74177; Q9967

== ENCOUNTER → 2022-12-04 | Outpatient (CLI) | payer BC ==
--- NOTE | 2022-12-04 10:27 | US ---
EXAMINATION TYPE: US abdomen complete DATE OF EXAM: 12/04/2022 COMPARISON: 09/23 CT ABD CLINICAL HISTORY: R10.30 LOWER ABD PAIN. generalized abd pain TECHNIQUE: Multiple sonographic images of the abdomen are obtained. FINDINGS: EXAM MEASUREMENTS: Liver Length: 17.1 cm Gallbladder Wall: 0.2 cm CBD: 0.4 cm Spleen: 9.0 cm Right Kidney: 10.7 x 4.2 x 3.8 cm Left Kidney: 10.1 x 4.5 x 4.7 cm THERAPEUTIC RECREATION DIRECTOR NOTES: some exam limitations due to overlying bowel gas Pancreas: tail gassed out, visualized portions demonstrate echogenic echopattern Liver: upper limits in size, attenuating, heterogenous, sparing seen at january Gallbladder: multiple layering stones Evidence for sonographic Randolph's sign: no CBD: wnl Spleen: wnl Right Kidney: wnl Left Kidney: wnl Upper IVC: wnl Abd Aorta: gassed out distally, visualized portions wnl The intrahepatic portion of the IVC and proximal abdominal aorta are within normal limits. Common bi le duct is unremarkable. The visualized portions of the pancreas are homogenous. The spleen is unre markable. Kidneys are symmetric and free of hydronephrosis. No renal lesions are seen. IMPRESSION: 1. Cholelithiasis. 2. Borderline hepatomegaly with underlying hepatic steatosis.
== END | disposition home or self-care (01) ==
LOC: RADUSWWP 09:48
PROVIDERS: ATTEND Family Medicine
DX: K21.00 Gastro-esophageal reflux disease with esophagitis, without bleeding (principal); K76.0 Fatty (change of) liver, not elsewhere classified; K58.0 Irritable bowel syndrome with diarrhea; K80.20 Calculus of gallbladder without cholecystitis without obstruction
CPT/HCPCS: 76700

== ENCOUNTER → 2022-12-04 | Outpatient (CLI) | payer BC ==
--- NOTE | 2022-12-07 17:05 | MM ---
Reason for Exam: Screening (asymptomatic). Last mammogram was performed 12 year(s) and 6 month(s) ago. Patient History: Menarche at age 9. First Full-Term at age 22. Left ovary removed at age 48. Right ovary removed at age 48. Hysterectomy at age 48. Postmenopausal. Patient used Hormonal Contraceptives for 15 years. Maternal grandmother had breast cancer. Maternal grandmother had breast cancer. Paternal grandmother had breast cancer at or over age 50. Risk Values: Aracely 5 year model risk: 1.6%. NCI Lifetime model risk: 6.4%. Prior Study Comparison: 08/06/1995 Screening Mammogram, [facility]. 01/10/2004 Screening Mammogram, [facility]. 05/19/2010 Bilateral Diagnostic Mammogram, [facility]. Tissue Density: The breast tissue is heterogeneously dense. This may lower the sensitivity of mammography. Findings: Analyzed By CAD. Pattern appears symmetrical. No suspicious groups of microcalcifications, spiculated or lobular masses, architectural distortion or other secondary signs of malignancy are mammographically apparent. Overall Assessment: Benign, BI-RAD 2 Management: Screening Mammogram of both breasts in 1 year. A negative mammogram report should not preclude additional follow up of suspicious palpable abnormalities. Patient should continue monthly self breast exam. A clinical breast exam by your physician is recommended on an annual basis and results should be correlated with mammographic findings. Electronically signed and approved by: Alessandro Isaac D.O. Radiologis
== END | disposition home or self-care (01) ==
LOC: RADMAMWWP 09:47
PROVIDERS: ATTEND Family Medicine
DX: Z12.31 Encounter for screening mammogram for malignant neoplasm of breast (principal); Z78.0 Asymptomatic menopausal state; Z80.3 Family history of malignant neoplasm of breast
CPT/HCPCS: 77063; 77067

== ENCOUNTER → 2023-02-17 | Outpatient (CLI) | payer BC ==
--- NOTE | 2023-02-17 09:09 | NM ---
Nuclear medicine hepatobiliary scan. HISTORY: Pain. DOSAGE: The patient received 8 0z Ensure plus and 5.1 mCi of Technetium 99m Choletec. FINDINGS: There is normal hepatic extraction. The gallbladder is seen by 45 minutes. There is bilia ry to bowel clearance by 20 minutes. Ejection fraction is 89%. IMPRESSION: 1. No diagnostic evidence of cholecystitis. 2. Ejection fraction 89% associated with hyperdynamic gallbladder correlate clinically.
== END | disposition home or self-care (01) ==
LOC: RADNMMAIN 06:43
PROVIDERS: ATTEND Family Medicine
DX: R10.10 Upper abdominal pain, unspecified (principal)
CPT/HCPCS: 78226; A9537

== ENCOUNTER → 2023-11-18 | Outpatient (CLI) | payer MEDICARE ==
[2023-11-18 13:44] LABS: African American GFR (CKD) 80 (>60 ml/min/1.73 sqM); Blood Urea Nitrogen 12 mg/dL (7-17); Non-African American GFR(CKD) 70 (>60 ml/min/1.73 sqM)
--- NOTE | 2023-11-18 16:31 | CT ---
EXAMINATION: CT ABDOMEN AND PELVIS WITH IV CONTRAST DATE OF EXAMINATION: 11/18/2023. COMPARISON: None available. INDICATION: Abdominal pain and cramping. PROCEDURE: Axial CT of the abdomen and pelvis was performed with contrast and sagittal and coronal reformatted images were performed. CT dose lowering techniques were used, to include: automated expos ure control, adjustment for patient size, and/or use of iterative reconstruction. 100 mL of Isovue-37 0 was given intravenously. FINDINGS: LOWER CHEST : The visualized lung bases are clear. There are no pleural or pericardial effusions. ABDOMEN: Liver and Biliary system: Normal. Adrenal glands: Normal. Kidneys and ureters: Normal. Spleen: Normal. Pancreas: Normal. Gallbladder: Multiple gallstones are seen within the gallbladder.. Lymph nodes, Peritoneum and mesentery: There is no mesenteric or retroperitoneal lymphadenopathy. Gastrointestinal tract: There are no dilated loops of bowel or free intraperitoneal air. The appe ndix appears absent. There is mild sigmoid colonic diverticulosis without evidence of diverticulitis. Aorta/IVC: There is moderate vascular calcification throughout the abdominal aorta without evidence of aneurysmal dilation or dissection. IVC normal. Abdominal wall: Normal. PELVIS: Fluid: There is no free fluid in the pelvis. Lymph Nodes: There is no pelvic or inguinal lymphadenopathy.. Urinary bladder: Normal. BONES: There are no osseous destructive lesions.. ADDITIONAL SIGNIFICANT FINDINGS: Prior hysterectomy. IMPRESSION: 1. No acute process seen within the abdomen or pelvis. 2. Cholelithiasis. 3. Diverticulosis without evidence of diverticulitis.
== END | disposition home or self-care (01) ==
LOC: RADCTMAIN 13:09
PROVIDERS: ATTEND Internal Medicine Gastroenterology
DX: K80.20 Calculus of gallbladder without cholecystitis without obstruction (principal); K57.30 Diverticulosis of large intestine without perforation or abscess without bleeding; R19.4 Change in bowel habit
CPT/HCPCS: 82565; 84520; 74177; 36415; Q9967